=== PATIENT | female | born 1950 | race Caucasian/White ===

== ENCOUNTER 2016-11-24 08:20 | Emergency (ER) | payer OTHER ==
[~2016-11-24] VITALS: Ht 167.6 cm; Wt 76.5 kg
[2016-11-24] MEDS ORDERED: LORazepam 1MG TABLET ONE (09:18)
[2016-11-24] MEDS ORDERED: LORazepam 1MG TABLET PO ONE (09:30)
[2016-11-24 10:24] LABS: BLOOD UREA NITROGEN 22 mg/dL (7-18)
[2016-11-24] MEDS ORDERED: GADOBUTROL 7.5 MMOL/7.5 ML PFS ONE (12:40)
[2016-11-24] MEDS ORDERED: methylPREDNISolone SOD SUCC 40 MG/ML ONE (14:28)
[2016-11-24] MEDS ORDERED: methylPREDNISolone SOD SUCC 125 MG/2 ML ONE (14:28)
[2016-11-24] MEDS ORDERED: methylPREDNISolone SOD SUCC 40 MG/ML IV SCH (14:30)
[2016-11-24] MEDS ORDERED: methylPREDNISolone SOD SUCC 40 MG/ML IV ONE (14:30)
[2016-11-24 14:32] VITALS: BP 111/72
== END 2016-11-24 15:23 | disposition home or self-care (01) ==
LOC: ED 08:53
DX: M25.552 Pain in left hip (principal); M13.88 Other specified arthritis, other site; Z90.710 Acquired absence of both cervix and uterus
CPT/HCPCS: 36415; 72158; 73723; 80048; 82040; 96374; 99285; A9585; J2920